=== PATIENT | male | born 1975 | race African-American/Black ===

== ENCOUNTER 2018-02-15 20:00 | Emergency (ER) | payer SELFPAY ==
[~2018-02-15] VITALS: Ht 195.6 cm; Wt 160.0 kg
[2018-02-15] MEDS ORDERED: ENALAPRIL 5MG TABLET PO SCH (21:45)
[2018-02-15 23:14] VITALS: BP 170/90
== END 2018-02-15 23:51 | disposition home or self-care (01) ==
LOC: ER 21:42
DX: M54.9 Dorsalgia, unspecified (principal); M79.602 Pain in left arm; M79.605 Pain in left leg; I10 Essential (primary) hypertension; V49.88XA Car occupant (driver) (passenger) injured in other specified transport accidents, initial encounter; Y93.89 Activity, other specified; Y99.8 Other external cause status; Y92.410 Unspecified street and highway as the place of occurrence of the external cause; Z88.0 Allergy status to penicillin; Z91.19 Patient's noncompliance with other medical treatment and regimen
CPT/HCPCS: 99283; Z7610